=== PATIENT | female | born 1945 | race Caucasian/White ===

== ENCOUNTER 2017-05-27 22:18 | Emergency (ER) | payer OTHER, MEDICAID ==
[2017-05-27] MEDS ORDERED: NS 1,000 ML IV ONE (22:26)
--- NOTE | 2017-05-27 22:29 | CPEKG ---
Heart Rate: 77 RR Interval: 779 P-R Interval: 136 QRSD Interval: 80 QT Interval: 356 QTC Interval: 403 P [place]: 41 QRS [place]: 11 T Wave [place]: 88 EKG Severity - ABNORMAL ECG - EKG Impression: SINUS RHYTHM EKG Impression: NONSPECIFIC T ABNORMALITIES, ANT-LAT LEADS Electronically Signed By: Soraida Romero 28-May-2017 05:15:04
--- NOTE | 2017-05-27 22:34 | EDPHY ---
H & P Stated Complaint: abdominal pain Time Seen by Provider: 05/27/17 22:20 HPI/ROS: HPI The patient presents brought in by ambulance for abdominal pain which began about 2 hr prior to arrival. This started as chest pain supposedly, however the patient denies this, and then traveled to her left lower quadrant and groin. She suffers from chronic pain which she mostly experiences on the right side of her body, however this pain appears to be more left-sided. It has been constant for the last 2 hr. She says she has been fearful of eating anything because she feels this would provoke the pain. She denies any falls, rashes, difficulty urinating or constipation. He has not had a fever. She has not had pain like this before. REVIEW OF SYSTEMS Constitutional: No fever, no chills. Eyes: No discharge. ENT: No sore throat. Cardiovascular: No chest pain, no palpitations. Respiratory: No cough, no shortness of breath. Gastrointestinal: Positive for left lower quadrant abdominal pain Genitourinary: No hematuria. Musculoskeletal: No back pain. Skin: No rashes. Neurological: No headache. PMHx: History of CVA with hemiplegia and dysphagia, chronic pain syndrome, major depressive disorder Soc Hx: Lives at [facility]; [place] patient PHYSICAL General Appearance: Alert, no distress Eyes: Pupils equal and round no pallor or injection ENT, Mouth: Mucous membranes moist Respiratory: There are no retractions, lungs are clear to auscultation Cardiovascular: Regular rate and rhythm Gastrointestinal: Midline surgical abdominal scar, Abdomen is soft and tender bilateral lower quadrants, no masses, bowel sounds normal : There is no inguinal lymphadenopathy, there is no rash present externally Neurological: A&O, moves all extremities Skin: Warm and dry, no rashes Musculoskeletal: Neck is supple non tender Extremities: symmetrical, full range of motion Psychiatric: Patient is oriented , there is no agitation Source: Patient, EMS Exam Limitations: Physical impairment Constitutional: Initial Vital Signs Temperature (C) 36.4 C 05/27/17 22:29 Heart Rate 88 05/27/17 22:29 Respiratory Rate 16 05/27/17 22:29 Blood Pressure 159/92 H 05/27/17 22:29 O2 Sat (%) 97 05/27/17 22:29 O2 Delivery Mode Room Air Allergies/Adverse Reactions: Penicillins Allergy (Verified 05/27/17 22:38) Home Medications: Medication Instructions Recorded Aspirin 05/27/17 Atorvastatin Calcium 05/27/17 Carvedilol 05/27/17 Cymbalta 05/27/17 Fosamax 35 MG 05/27/17 Lisinopril 05/27/17 Melatonin 05/27/17 [place] 5/325 (*) 05/27/17 Senna 05/27/17 Tegretol 05/27/17 Tylenol 325mg (*) 05/27/17 Medical Decision Making - Diagnostics EKG Interpretation: EKG: Complete interpretation has been separately recorded in the [facility] archive. Summary impression: Normal sinus rhythm the biphasic T-waves in V2, no old for comparison Imaging Results: Imaging Impressions Chest X-Ray 05/27/17 22:26 Impression: 1. No acute pulmonary disease. 2. Old right rib fractures. 3. No pneumothorax. Abdomen CT 05/27/17 22:47 Impression: 1. Severe constipation with a large amount of stool throughout the entire colon. 2. No evidence of diverticulitis, colitis or bowel obstruction. 3. Old L1, L2 and L5 compression fractures with retropulsion at L1 and L2 resulting in at least moderate central canal stenosis as described above. Findings and recommendations discussed with Emergency Department physician, Soraida Romero MD at 23:30 hour, 05/27/2017. Final report concurs with initial preliminary interpretation. Imaging: Discussed imaging studies w/ call center receptionist Radiologist, I viewed and interpreted images myself Differential Diagnosis: This is a 72-year-old female who is brought in by ambulance from [facility], past medical history includes CVA, chronic pain syndrome, major depressive disorder who presents with lower abdominal pain for the last 2 hr, not improved with pain medication that she received at the snf. On exam, she is generally well-appearing, she does have tenderness in her lower quadrants. She is no masses felt. Differential diagnosis includes appendicitis, diverticulitis, ovarian cyst or torsion, urinary tract infection. 10:35 p.m.- I met the paramedics at the bedside to obtain their report. I have ordered IV fluids and pain medication for her. 11:45 p.m.- Labs have been reviewed and are unremarkable. CT scan demonstrates constipation with no other acute findings. We have offered the patient an enema , however she refuses. She does agree to magnesium citrate. She could try the enema when she returns to her snf. We will discharge her back there. - Data Points Laboratory Results: Laboratory Results 05/27/17 22:10 05/27/17 22:10 05/27/17 05/27/17 05/27/17 23:35 22:10 22:10 WBC 6.42 10^3/uL 10^3/uL (3.80-9.50) RBC 4.20 10^6/uL 10^6/uL (4.18-5.33) Hgb 13.1 g/dL g/dL (12.6-16.3) Hct 39.2 % % (38.0-47.0) MCV 93.3 fL fL (81.5-99.8) MCH 31.2 pg pg (27.9-34.1) MCHC 33.4 g/dL g/dL (32.4-36.7) RDW 13.3 % % (11.5-15.2) Plt Count 268 10^3/uL 10^3/uL (150-400) MPV 9.5 fL fL (8.7-11.7) Neut % (Auto) 80.5 % H % (39.3-74.2) Lymph % (Auto) 14.5 % L % (15.0-45.0) [place] % (Auto) 4.0 % L % (4.5-13.0) Eos % (Auto) 0.2 % L % (0.6-7.6) Baso % (Auto) 0.2 % L % (0.3-1.7) Nucleat RBC Rel Count 0.0 % % (0.0-0.2) Absolute Neuts (auto) 5.17 10^3/uL 10^3/uL (1.70-6.50) Absolute Lymphs (auto) 0.93 10^3/uL L 10^3/uL (1.00-3.00) Absolute Monos (auto) 0.26 10^3/uL L 10^3/uL (0.30-0.80) Absolute Eos (auto) 0.01 10^3/uL L 10^3/uL (0.03-0.40) Absolute Basos (auto) 0.01 10^3/uL L 10^3/uL (0.02-0.10) Absolute Nucleated RBC 0.00 10^3/uL 10^3/uL (0-0.01) Immature Gran % 0.6 % % (0.0-1.1) Immature Gran # 0.04 10^3/uL 10^3/uL (0.00-0.10) Sodium 138 mEq/L mEq/L (135-145) Potassium 4.1 mEq/L mEq/L (3.5-5.2) Chloride 102 mEq/L mEq/L (97-110) Carbon Dioxide 28 mEq/l mEq/l (22-31) Anion Gap 8 mEq/L mEq/L (8-16) BUN 32 mg/dL H mg/dL (7-23) Creatinine 0.8 mg/dL mg/dL (0.6-1.0) Estimated GFR > 60 Glucose 104 mg/dL H mg/dL (70-100) Calcium 8.7 mg/dL mg/dL (8.5-10.4) Total Bilirubin 0.4 mg/dL mg/dL (0.1-1.4) Conjugated Bilirubin 0.4 mg/dL mg/dL (0.0-0.5) Unconjugated Bilirubin 0.0 mg/dL mg/dL (0.0-1.1) AST 20 IU/L IU/L (14-46) ALT 24 IU/L IU/L (9-52) Alkaline Phosphatase 80 IU/L IU/L (38-126) Troponin I < 0.012 ng/mL ng/mL (0.000-0.034) Total Protein 6.2 g/dL L g/dL (6.3-8.2) Albumin 3.6 g/dL g/dL (3.5-5.0) Lipase 111 IU/L IU/L (23-300) Urine Color YELLOW Urine Appearance CLEAR Urine pH 5.0 (5.0-7.5) Ur Specific [place] > 1.035 H (1.002-1.030) Urine Protein NEGATIVE (NEGATIVE) Urine Ketones NEGATIVE (NEGATIVE) Urine Blood NEGATIVE (NEGATIVE) Urine Nitrate NEGATIVE (NEGATIVE) Urine Bilirubin NEGATIVE (NEGATIVE) Urine Urobilinogen 2.0 EU H EU (0.2-1.0) Ur Leukocyte Esterase NEGATIVE (NEGATIVE) Urine Glucose NEGATIVE (NEGATIVE) Medications Given: Discontinued Medications Fentanyl (Sublimaze) 50 mcg IVP EDNOW ONE Stop: 05/27/17 22:48 Last Admin: 05/27/17 23:35 Dose: 50 mcg Sodium Chloride (Ns) 1,000 mls @ 0 mls/hr IV EDNOW ONE; Wide Open PRN Reason: Protocol Stop: 05/27/17 22:27 Last Admin: 05/27/17 22:55 Dose: 1,000 mls Magnesium Citrate (Magnesium Citrate) 300 ml PO ONCE ONE Stop: 05/27/17 23:47 Last Admin: 05/27/17 23:54 Dose: 300 ml Departure - Departure Disposition: Home, Routine, Self-Care Clinical Impression: Lower abdominal pain, History of CVA (cerebrovascular accident) Constipation Qualifiers: Constipation type: unspecified constipation type Qualified Code(s): K59.00 - Constipation, unspecified Condition: Good Instructions: Constipation (ED) Additional Instructions: Your x-ray today shows that you have severe constipation. I recommend you drink plenty of fluids including prune juice. You can take MiraLax 17 g once a day until the constipation improves. You should try to avoid opiate pain medications as this may be contributing to your constipation. Referrals: [facility] ,. [Edm Groups for Call Sched] - As per Instructions
[2017-05-27 22:35] LABS: PLATELET COUNT 268 10^3/uL (150-400)
[2017-05-27 22:38] VITALS: TEMP 97.5
[2017-05-27] MEDS ORDERED: fentaNYL 100 MCG/2 ML INJ IVP ONE (22:47)
[2017-05-27] MEDS ORDERED: IOPAMIDOL (ISOVUE-300) 100 ML BTL ONE (22:52)
[2017-05-27] MEDS ORDERED: MAGNESIUM CITRATE 300 ML BOTTLE PO ONE (23:46)
[2017-05-28 00:30] VITALS: BP 153/90; PULSE 78; RESP 18; O2SAT 95
== END 2017-05-28 00:30 | disposition home or self-care (01) ==
LOC: EDUNIT#
DX: K59.00 Constipation, unspecified (principal); E86.9 Volume depletion, unspecified; Z79.82 Long term (current) use of aspirin; Z86.73 Personal history of transient ischemic attack (TIA), and cerebral infarction without residual deficits
CPT/HCPCS: 71045; 74177; 93005; 96361; 96374; 99285; J3010; Q9967

== ENCOUNTER 2017-06-04 15:30 | Observation (INO) | payer OTHER, MEDICAID ==
--- NOTE | 2017-06-04 15:32 | EDPHY ---
HPI/HX/ROS/PE/MDM Narrative: CHIEF COMPLAINT: Confusion, difficulty speaking HISTORY OF PRESENT ILLNESS: The patient is a 72 y/o female with a history of a stroke, cardiac stent, and chronic right-sided pain arriving via EMS as a stroke alert, after she became confused and had difficulty talking. At 15:00, 30 minutes ago, she went down to the nurses station for right-sided pain. The nurse noticed that the patient was more confused than normal and she had difficulty talking. When EMS arrived, she was too confused to follow commands. Her BGL was 133. She is currently complaining of right-sided pain. No left-sided pain, but there is a tingling sensation. Takes Aspirin daily. States she takes her pain medications as prescribed. Per her sister, the patient normally has difficulty talking. She normally knows what she wants to say, but is unable to say it. Her sister believes that the patient is at her baseline. No fever, chills, chest pain, shortness of breath, palpitations, vomiting, diarrhea, urinary complaints, headache, lightheadedness. Prior medical records reviewed including ED visit on 05/27/[address] Romero. REVIEW OF SYSTEMS: Aside from elements discussed in the HPI, a comprehensive 10-point review of systems was reviewed and is negative. PAST MEDICAL HISTORY: CVA with hemilegia and dysphagia, cardiac stent (5 years ago), chronic pain syndrome, major depressive disorder SOCIAL HISTORY: Sister at bedside, lives at [facility] patient VITAL SIGNS: Reviewed by me GENERAL: Can tell me her name, but her speech seems off. Well-developed, well- nourished, resting comfortably in no respiratory distress. HEENT: Atraumatic. Eyes: No icterus, no injection. Mouth: moist mucous membranes. No erythema or lesions. Neck: supple with no adenopathy. LUNGS: Clear to auscultation bilaterally, no wheezes, rhonchi or rales. CARDIAC: Regular rate and rhythm, no rubs, murmurs or gallops. ABDOMEN: Soft, nontender, nondistended, bowel sounds normal. BACK: No CVA tenderness. EXTREMITIES: No trauma. No edema. Range of motion is normal throughout. NEURO: Alert and oriented, unable to name objects, expressive aphasia, some difficulty following commands. Normal [id number]. Motor strength 5 over 5 in all major muscle groups. Sensation intact to light touch. SKIN: Warm and dry, no rash. PSYCHIATRIC: Normal mentation, no agitation. Portions of this note were transcribed by a medical laboratory specialist. I personally performed a history, physical exam, medical decision making, and confirmed accuracy of information the transcribed note. ED Course: The patient is a 72 y/o female with a history of a CVA and chronic right-sided pain arriving via EMS as a stroke alert. She became confused and had difficulty talking at 15:00, 30 minutes ago. However, her last known normal mentation is unknown. She can tell me her name but is unable to name objects, has expressive aphasia, and is only able to follow some commands. EKG, chest x-ray, and head CT ordered. 1530: I met EMS upon arrival. 1544: Consulted with neurologist from [facility], regarding this patient. 1545: Spoke with Dr. Parikh, radiologist, there is a large left MCA stroke from prior stroke. No signs of acute stroke on right. 1552: 12-LEAD EKG: Please see the full report in [facility]. My interpretation: Normal sinus rhythm with a rate of 68, significant T-wave inversions V1-3. Similar to prior EKG's. 1605: Patient's sister is at bedside. She states that her sister seems to be at her baseline for speech and pain. 1645: Angio head and neck CT ordered 1728: Spoke with radiologist, he reports that the patient's CTA's are normal. 1740: Consulted with Dr. Chung from [place], patient will be admitted to this hospital for observation. 1807: Consulted with Dr. Guillaume, hospitalist; he agrees to admit this patient for a possible TIA and confusion. - Data Points Imaging Results: Imaging Impressions Head CT 06/04/17 15:35 Impression: 1. Encephalomalacia related to large infarct previously involving left MCA distribution. 2. No hemorrhage, mass effect, or definite acute peripheral infarct. If symptoms worsen, additional imaging may be necessary. Findings discussed with Iesha Bautista MD at 1550 hour, 06/04/2017. Chest X-Ray 06/04/17 15:36 Impression: Nothing new. Head CTA 06/04/17 16:41 Impression: 1. Mild atherosclerotic change in both carotid bulbs with no flow significant stenosis. 2. Mild tortuosity of the left vertebral artery narrowing the neural foramina at C2-C3. 3. Other chronic findings as above. Measurement of carotid stenosis is based on the residual internal carotid diameter with [place] Symptomatic Carotid Endarterectomy Trial (NASCET) based stenosis levels. CT Angiography of the Brain Clinical Indications: Possible stroke? Left weakness, confusion. Technique: CT angiogram of the brain was performed with the uneventful intravenous administration of 90 mL Isovue-370 contrast. Multiplanar reconstructions including 3D reconstructions performed and evaluated on [employer] workstation in order to better evaluate the [place] vessels. Images were manipulated by the radiologist at the computer workstation. Dose reduction techniques were utilized. Findings: Major vessels of the [place] are adequately displayed, demonstrating no evidence of aneurysm, vascular malformation, flow-limiting stenosis, or occlusion. Bilateral cavernous internal carotid arteries and vertebrobasilar system demonstrates no evidence of flow-limiting stenosis, aneurysm, occlusion or dissection. Superior sagittal sinus, transverse sinuses, and major veins demonstrate no evidence of intraluminal thrombi. Encephalomalacia from an old chronic infarct on the left as seen on the CT head performed earlier today. Impression: Negative CT angiogram of the brain. Results called and discussed with Iesha Bautista MD, on 06/04/2017, 17:31. Neck CTA 06/04/17 16:41 Impression: 1. Mild atherosclerotic change in both carotid bulbs with no flow significant stenosis. 2. Mild tortuosity of the left vertebral artery narrowing the neural foramina at C2-C3. 3. Other chronic findings as above. Measurement of carotid stenosis is based on the residual internal carotid diameter with [place] Symptomatic Carotid Endarterectomy Trial (NASCET) based stenosis levels. CT Angiography of the Brain Clinical Indications: Possible stroke? Left weakness, confusion. Technique: CT angiogram of the brain was performed with the uneventful intravenous administration of 90 mL Isovue-370 contrast. Multiplanar reconstructions including 3D reconstructions performed and evaluated on Vitrea workstation in order to better evaluate the [place] vessels. Images were manipulated by the radiologist at the computer workstation. Dose reduction techniques were utilized. Findings: Major vessels of the [place] are adequately displayed, demonstrating no evidence of aneurysm, vascular malformation, flow-limiting stenosis, or occlusion. Bilateral cavernous internal carotid arteries and vertebrobasilar system demonstrates no evidence of flow-limiting stenosis, aneurysm, occlusion or dissection. Superior sagittal sinus, transverse sinuses, and major veins demonstrate no evidence of intraluminal thrombi. Encephalomalacia from an old chronic infarct on the left as seen on the CT head performed earlier today. Impression: Negative CT angiogram of the brain. Results called and discussed with Iesha Bautista MD, on 06/04/2017, 17:31. Imaging: Discussed imaging studies w/ parachute supervisor Radiologist, I viewed and interpreted images myself Laboratory Results: Laboratory Results 06/04/17 15:45 06/04/17 15:45 06/04/17 06/04/17 06/04/17 16:41 15:52 15:45 WBC RBC Hgb POC Hgb 12.9 gm/dL gm/dL (12.6-16.3) Hct POC Hct 38 % % (38-47) MCV MCH MCHC RDW Plt Count MPV Neut % (Auto) Lymph % (Auto) [place] % (Auto) Eos % (Auto) Baso % (Auto) Nucleat RBC Rel Count Absolute Neuts (auto) Absolute Lymphs (auto) Absolute Monos (auto) Absolute Eos (auto) Absolute Basos (auto) Absolute Nucleated RBC Immature Gran % Immature Gran # PT INR POC Sodium 142 mEq/L mEq/L (135-145) Sodium POC Potassium 4.0 mEq/L mEq/L (3.3-5.0) Potassium POC Chloride 101 mEq/L mEq/L (97-110) Chloride Carbon Dioxide Anion Gap POC BUN 15 mg/dL mg/dL (7-23) BUN Creatinine POC Creatinine 0.7 mg/dL mg/dL (0.6-1.0) Estimated GFR Glucose POC Glucose 130 mg/dL H mg/dL (70-100) Calcium Troponin I < 0.012 ng/mL ng/mL (0.000-0.034) TSH 0.885 uIU/mL uIU/mL (0.465-4.680) 06/04/17 06/04/17 06/04/17 15:45 15:45 15:45 WBC 6.90 10^3/uL 10^3/uL (3.80-9.50) RBC 4.12 10^6/uL L 10^6/uL (4.18-5.33) Hgb 12.8 g/dL g/dL (12.6-16.3) POC Hgb Hct 39.1 % % (38.0-47.0) POC Hct MCV 94.9 fL fL (81.5-99.8) MCH 31.1 pg pg (27.9-34.1) MCHC 32.7 g/dL g/dL (32.4-36.7) RDW 13.5 % % (11.5-15.2) Plt Count 298 10^3/uL 10^3/uL (150-400) MPV 9.1 fL fL (8.7-11.7) Neut % (Auto) 83.3 % H % (39.3-74.2) Lymph % (Auto) 11.7 % L % (15.0-45.0) [place] % (Auto) 4.2 % L % (4.5-13.0) Eos % (Auto) 0.0 % L % (0.6-7.6) Baso % (Auto) 0.1 % L % (0.3-1.7) Nucleat RBC Rel Count 0.0 % % (0.0-0.2) Absolute Neuts (auto) 5.74 10^3/uL 10^3/uL (1.70-6.50) Absolute Lymphs (auto) 0.81 10^3/uL L 10^3/uL (1.00-3.00) Absolute Monos (auto) 0.29 10^3/uL L 10^3/uL (0.30-0.80) Absolute Eos (auto) 0.00 10^3/uL L 10^3/uL (0.03-0.40) Absolute Basos (auto) 0.01 10^3/uL L 10^3/uL (0.02-0.10) Absolute Nucleated RBC 0.00 10^3/uL 10^3/uL (0-0.01) Immature Gran % 0.7 % % (0.0-1.1) Immature Gran # 0.05 10^3/uL 10^3/uL (0.00-0.10) PT 12.8 SEC SEC (12.0-15.0) INR 0.94 (0.83-1.16) POC Sodium Sodium 142 mEq/L mEq/L (135-145) POC Potassium Potassium 4.4 mEq/L mEq/L (3.5-5.2) POC Chloride Chloride 101 mEq/L mEq/L (97-110) Carbon Dioxide 30 mEq/l mEq/l (22-31) Anion Gap 11 mEq/L mEq/L (8-16) POC BUN BUN 16 mg/dL mg/dL (7-23) Creatinine 0.6 mg/dL mg/dL (0.6-1.0) POC Creatinine Estimated GFR > 60 Glucose 116 mg/dL H mg/dL (70-100) POC Glucose Calcium 8.5 mg/dL mg/dL (8.5-10.4) Troponin I TSH Medications Given: Oxycodone HCl (Oxycodone Ir) 5 - 10 mg PO Q3HRS PRN PRN Reason: Pain, Severe Able to Take PO Stop: 06/14/17 18:33 Last Admin: 06/04/17 20:20 Dose: 10 mg Point of Care Test Results: 06/04/17 15:52 POC Sodium 142 POC Potassium 4.0 POC Chloride 101 POC BUN 15 POC Creatinine 0.7 POC Glucose 130 H General Initial Vital Signs: Initial Vital Signs Temperature (C) 36.7 C 06/04/17 15:51 Heart Rate 79 06/04/17 15:51 Respiratory Rate 19 06/04/17 15:51 Blood Pressure 120/77 06/04/17 15:51 O2 Sat (%) 98 06/04/17 15:51 O2 Delivery Mode Room Air Allergies/Adverse Reactions: Penicillins Allergy (Verified 05/27/17 22:38) Home Medications: Medication Instructions Recorded Aspirin EC [Aspirin EC 81 mg (*)] 81 mg PO DAILY 05/27/17 Atorvastatin Calcium 80 mg PO DAILY 05/27/17 Carvedilol [Coreg (*)] 6.25 mg PO BIDMEAL 05/27/17 Duloxetine HCl [Cymbalta] 90 mg PO DAILY 05/27/17 Acetaminophen [Tylenol 325mg (*)] 650 mg PO BID PRN 06/04/17 Alendronate Sodium [Fosamax 70 MG 70 mg PO TU@0700 06/04/17 (*)] Cholecalciferol Vit D3 [Vitamin D3 1,000 units PO DAILY 06/04/17 (*)] Cyanocobalamin [Vitamin B12 (*)] 1,000 mcg PO DAILY 06/04/17 Estradiol [Estrace Vaginal (*)] 1 gm VG MOTH 06/04/17 HYDROcodone/APAP 10325 [[place] 1 tab PO Q4 06/04/17 10325 (*)] Lisinopril/Hctz 20/12.5MG 2 ea PO DAILY 06/04/17 [Zestoretic/Prinzide 20/12.5MG (*)] Melatonin [Melatonin 3 MG (*)] 3 mg PO HS PRN 06/04/17 Multivitamins [Multivitamin (*)] 1 tab PO DAILY 06/04/17 Polyethylene Glycol 3350 [Miralax 17 gm PO DAILY 06/04/17 17 gm (*)] Polyethylene Glycol 3350 [Miralax 17 gm PO DAILY PRN 06/04/17 17 gm (*)] Rabeprazole Sodium [Aciphex] 20 mg PO DAILY 06/04/17 Sennosides/Docusate Sodium 1 tab PO BID PRN 06/04/17 [SENEXON-S TABLET] Triamcinolone 0.1% [Triamcinolone 1 brett TP BID PRN 06/04/17 0.1% Cream (*)] predniSONE [Prednisone] 10 mg PO DAILY 06/04/17 Departure - Departure Disposition: [facility] Inpatient Acute Clinical Impression: Confusion TIA (transient ischemic attack) Qualifiers: Transient cerebral ischemia type: other Qualified Code(s): G45.8 - Other transient cerebral ischemic attacks and related syndromes Condition: Fair Report Scribed for: Iesha Bautista Report Scribed by: Rebecca Gilliam Date of Report: 06/04/17 Time of Report: 15:35
--- NOTE | 2017-06-04 15:54 | CPEKG ---
Heart Rate: 68 RR Interval: 882 P-R Interval: 136 QRSD Interval: 76 QT Interval: 388 QTC Interval: 413 P [place]: 0 QRS [place]: 22 T Wave [place]: 82 EKG Severity - ABNORMAL ECG - EKG Impression: SINUS RHYTHM EKG Impression: PROBABLE LEFT ATRIAL ABNORMALITY EKG Impression: PROBABLE ANTEROSEPTAL INFARCT, AGE INDETERM Electronically Signed By: Iesha Bautista 05-Jun-2017 00:46:29
[2017-06-04 16:11] LABS: PLATELET COUNT 298 10^3/uL (150-400)
[2017-06-04 16:21] LABS: INR 0.94 (0.83-1.16); PROTIME(PATIENT) 12.8 SEC (12.0-15.0)
[2017-06-04] MEDS ORDERED: IOPAMIDOL (ISOVUE 370) 100 ML BTL IV ONE (16:46)
[2017-06-04] MEDS ORDERED: ONDANSETRON DISINTEGRATING 4 MG TAB PO PRN (18:34)
[2017-06-04] MEDS ORDERED: ONDANSETRON 4 MG/2 ML VIAL IVP PRN (18:34)
--- NOTE | 2017-06-04 19:20 | GHP ---
[f rep st] HISTORY AND PHYSICAL DATE OF ADMISSION: 06/04/2017 CHIEF COMPLAINT: Worsening pain. HISTORY OF PRESENT ILLNESS: This is 72-year-old female with a history of a CVA with significant defi cits who is brought in by paramedics as a stroke alert for questionable worsening left-sided weakness . She has a history of a large left-sided MCA distribution stroke with expressive aphasia as well as right-sided weakness. She lives at [facility]. She went to the motel front desk attendant today complaining of wo rsening pain. She is telling me she was complaining of pain on her right side of her body, however, the initial report was pain on the left side of her body. She has chronic right-sided pain since her stroke. When paramedics evaluated her they thought that she had some left-sided weakness. Thus, roscoe ndiaye was brought in as a stroke alert. I am seeing her with her sister, niece, and grandniece. They al l confirm to me that neurologically she is unchanged from her baseline. To me she continues to compl ain of worse right-sided burning pain, mostly centered in her right thigh. She had been started on p rednisone at [facility] I believe for this chronic pain. PAST MEDICAL/SURGICAL HISTORY: 1. History of a CVA 20 years ago, left MCA distribution stroke. Currently on Lipitor and aspirin. 2. Chronic pain on the right side of her body subsequent to this stroke. 3. Depression. 4. Hypertension. 5. Coronary artery disease, status post stent 4 years ago. 6. GERD. 7. Bowel obstruction, status post surgical intervention. MEDICATIONS: Please see medication reconciliation. ALLERGIES: Penicillin. FAMILY HISTORY: She has heart disease, but no strokes in her family. SOCIAL HISTORY: She lives at [facility]. She is accompanied by multiple family members. REVIEW OF SYSTEMS: A 10-point review of systems is conducted, and is negative except per HPI. PHYSICAL EXAM: VITAL SIGNS: Blood pressure 145/72, heart rate 70, respiration rate 20, satting at 9 4% on room air. Temperature is 36.7. GENERAL: The patient is a very pleasant female who is resting comfortably, no acute distress. HEENT: Shows her to be normocephalic, atraumatic. CARDIOVASCULAR: Regular rate and rhythm. No murmurs, no murmurs rubs, or gallops. PULMONARY: Lungs clear to ausc ultation bilaterally. ABDOMEN: Soft, nontender, nondistended. SKIN: Shows no rash. : No Marcano . NEUROLOGIC: Shows her to have significant expressive aphasia. I believe that she is alert and or iented x3. Cranial nerves 2-12 are intact. She has marked right-sided weakness with a right arm con tracture. It is difficult to ascertain, but I believe that sensation to light touch is intact in the right side. On the left side, her triceps is mildly weak. However, the majority of her left-sided motor exam seems normal. Sensation is intact to light touch. PSYCHIATRIC: Normal mood and affect. LABS: Basic metabolic panel is normal. Troponin is negative. INR 0.94. CBC is normal. DATA: 1. CT angio of the head and neck shows no flow-limiting stenosis. Negative CT angio of the brain. 2. Electrocardiogram shows deep T-wave inversions in V2 through V4 which have been present previousl y. 3. Head CT shows a large area of left-sided encephalomalacia related to her old stroke. 4. Chest x-ray, which I personally viewed and interpreted shows normal-sized heart. No acute infilt rates. IMPRESSION/PLAN: 1. Questionable new neurologic changes in patient with significant deficits from an old cerebrovascu lar accident: I believe she is at her baseline. She is not a tPA candidate as there was no time of onset, unclear neurologic symptoms, and she is currently at her baseline. She did come in as a strok e alert. For now, we will continue her previous medications, including aspirin, statin. I have orde red an MRI just to help further evaluate, as may change her antiplatelet medications. We will monito r on telemetry as well. Neurology consult will be obtained tomorrow. If workup is negative, she can likely be discharged tomorrow. 2. Coronary artery disease, status post stent: She is on aspirin, statin, beta helena. We will co ntinue these. 3. Chronic pain, on continuous narcotics: This is from her stroke. She has received a prednisone b urst which does not seem to have helped her pain much. I note that she is on Cymbalta. Would also c onsider adding something like gabapentin if that has not been tried before. 4. Hypertension: Lisinopril/hydrochlorothiazide. 5. Code status: She would like to be full code, full tube. Her sister is her MD GUERRA. We will cont inue to discuss her Advanced Directives. 6. Venous thromboembolism risk is high. I will give her low-dose Lovenox. /[id number]/MODL
[2017-06-04] MEDS ORDERED: POLYETHYLENE GLYCOL 3350 17 GM PKT PO PRN (19:26)
[2017-06-04] MEDS ORDERED: MELATONIN 3 MG TAB PO PRN (19:26)
[2017-06-04] MEDS ORDERED: TRIAMCINOLONE 0.1% 15 GM CRTUBE TP PRN (19:26)
[2017-06-04] MEDS ORDERED: SENNOSIDES/DOCUSATE SODIUM TAB PO PRN (19:26)
[2017-06-04] MEDS: oxyCODONE IR 5 MG TAB PO PRN ×2 (20:18→20:20)
[2017-06-05] MEDS: oxyCODONE IR 5 MG TAB PO PRN ×5 (01:09→15:14)
[2017-06-05 07:57] VITALS: PULSE 69; RESP 16; O2SAT 93
[2017-06-05] MEDS ORDERED: CARVEDILOL 6.25 MG TAB PO SCH (08:00)
[2017-06-05] MEDS ORDERED: POLYETHYLENE GLYCOL 3350 17 GM PKT PO SCH (09:00)
[2017-06-05] MEDS ORDERED: PANTOPRAZOLE SODIUM 40 MG TAB PO SCH (09:00)
[2017-06-05] MEDS ORDERED: ASPIRIN EC 81 MG TAB PO SCH (09:00)
[2017-06-05] MEDS ORDERED: ATORVASTATIN CALCIUM 40 MG TAB PO SCH (09:00)
[2017-06-05] MEDS ORDERED: DULoxetine 30 MG CAP PO SCH (09:00)
[2017-06-05] MEDS ORDERED: LISINOPRIL/HCTZ 20/12.5MG 1 EA TAB PO SCH (09:00)
[2017-06-05] MEDS ORDERED: ENOXAPARIN 40 MG/0.4 ML SYR SC SCH (09:00)
[2017-06-05] MEDS ORDERED: predniSONE 10 MG TAB PO SCH (09:00)
[2017-06-05] MEDS: ACETAMINOPHEN 325 MG TAB PO PRN ×2 (09:42→14:51)
[2017-06-05 11:22] VITALS: BP 127/66; TEMP 97.4
--- NOTE | 2017-06-05 11:47 | GCON ---
[f rep st] CONSULTATION NEUROLOGY CONSULTATION REFERRING PHYSICIAN: Shantanu Guillaume MD HISTORY: The patient is a 72-year-old woman who I am asked to see in neurologic consultation regardi ng neurologic changes, perhaps yesterday in which there was a question of stroke. She had a stroke a bout 20 years ago with severe left middle cerebral artery territory infarct causing severe expressive aphasia problems and a right-sided weakness. She lives at [facility]. According to the history, s he had gone to the front tender and was apparently complaining of some pain on the right side of her yasmine dy. There has been some chronic issues with this since the stroke. She was noted to have perhaps mo re weakness by paramedics and she came in under a stroke alert. Dr. Guillaume saw the patient with the sister, niece and grandniece. They did not think she was different from her baseline. She was focu sed mainly on pain around the right thigh. Currently, the patient is not expressing pain to me. How ever, her language is impaired enough that she can't really tell me much other than yes' and no's and can't speak a few words, but I will detail that exam in a moment. She was not thought to be a candidate for tPA because of really a lack of clear onset and she did not have any large vessel occlusions on the CT angiogram. She was continued on aspirin and her statin t herapy, and has been on the floor overnight with no evidence of new problems. PAST MEDICAL HISTORY: As outlined above. Chronic pain on the right side, depression, hypertension, coronary disease, reflux, and prior bowel obstruction with surgical intervention. ALLERGIES: To penicillin. FAMILY HISTORY: Of heart disease. SOCIAL HISTORY: She lives at [facility]. No smoking or alcohol. REVIEW OF SYSTEMS: A 10-point review of systems completed, unremarkable except for that noted above. PHYSICAL EXAMINATION: VITAL SIGNS: Her blood pressure is 132/66, pulse of 69, respirations 16, temp erature 36.4. GENERAL: She is well developed, lying in the bed in no acute distress. NECK: Supple with no bruits or masses. CARDIAC: Regular rate and rhythm with no murmur. NEUROLOGIC: She is aw nenita and alert with prominent expressive aphasia with fragmentary speech, but she could name some obje cts. She could count to 5. She could count my fingers. Her ability to express what is happening is profoundly impaired because of the language problems. Sometimes she will make mistakes with yes and no responses but can correct them. The speech is mildly dysarthric. Pupils 3 mm and reactive. No obvious visual field loss. Extraocul ar movements are intact. There is a mild right lower facial droop. Palate elevates symmetrically. Tongue protrudes midline. Motor exam reveals spastic right hemiplegia with partial antigravity stren gth in the right lower extremity and minimal in the right upper extremity. Sensation seems to be int act, although detail is hard to say for sure. She is not ataxic. Reflexes are brisk on the right. IMAGING: I reviewed the head CT. CT angiogram of the brain MRI. I do not see any evidence of acute stroke on the MRI diffusion-weighted imaging. No hemorrhage. There is a very large area of encepha lomalacia in most of the entire territory of the left middle cerebral artery. IMPRESSION: Total unit time of 70 minutes. The patient probably did not have a transient ischemic a ttack and definitely does not have evidence of a new stroke. Perhaps some fluctuation in prior defic its could be present. Apparently, pain is not a new issue. I do not see any indication for changing our secondary stroke prophylaxis strategies. I believe she can safely be discharged back to [facility] on her aspirin and statin therapy. Her current NIH Stroke Scale is 12. /[id number]/MODL
[2017-06-05] MEDS ORDERED: oxyCODONE IR 5 MG TAB PO ONE ×2 (12:01→16:00)
--- NOTE | 2017-06-05 12:11 | PDIAF ---
- Diagnosis Diagnosis: h/o stroke Code Status: Full Code - Medication Management Discharge Medications: Medications to Continue on Transfer Aspirin EC [Aspirin EC 81 mg (*)] 81 mg PO DAILY 05/27/17 [Last Taken 06/04/17 08:00] Atorvastatin Calcium 80 mg PO DAILY 05/27/17 [Last Taken 06/03/17] Carvedilol [Coreg (*)] 6.25 mg PO BIDMEAL 05/27/17 [Last Taken 06/04/17 08:00] Duloxetine HCl [Cymbalta] 90 mg PO DAILY 05/27/17 [Last Taken 06/04/17 08:00] Acetaminophen [Tylenol 325mg (*)] 650 mg PO BID PRN 06/04/17 [Last Taken 08:00] Alendronate Sodium [Fosamax 70 MG (*)] 70 mg PO TU@0700 06/04/17 [Last Taken ] Cholecalciferol Vit D3 [Vitamin D3 (*)] 1,000 units PO DAILY 06/04/17 [Last Taken 06/04/17 08:00] Cyanocobalamin [Vitamin B12 (*)] 1,000 mcg PO DAILY 06/04/17 [Last Taken 08:00] Estradiol [Estrace Vaginal (*)] 1 gm VG MOTH 06/04/17 [Last Taken 06/02/17] HYDROcodone/APAP 10/325 [[place] 10/325 (*)] 1 tab PO Q4 06/04/17 [Last Taken 14:00] Lisinopril/Hctz 20/12.5MG [Zestoretic/Prinzide 20/12.5MG (*)] 2 ea PO DAILY [Last Taken 06/04/17 08:00] Melatonin [Melatonin 3 MG (*)] 3 mg PO HS PRN 06/04/17 [Last Taken Unknown] Multivitamins [Multivitamin (*)] 1 tab PO DAILY 06/04/17 [Last Taken 06/04/17 08 :00] Polyethylene Glycol 3350 [Miralax 17 gm (*)] 17 gm PO DAILY 06/04/17 [Last Taken 06/04/17 08:00] Polyethylene Glycol 3350 [Miralax 17 gm (*)] 17 gm PO DAILY PRN 06/04/17 [Last Taken Unknown] Rabeprazole Sodium [Aciphex] 20 mg PO DAILY 06/04/17 [Last Taken 06/03/17] Sennosides/Docusate Sodium [SENEXON-S TABLET] 1 tab PO BID PRN 06/04/17 [Last Taken Unknown] Triamcinolone 0.1% [Triamcinolone 0.1% Cream (*)] 1 brett TP BID PRN 06/04/17 [ Last Taken Unknown] predniSONE [Prednisone] 10 mg PO DAILY 06/04/17 [Last Taken 06/04/17 08:00] Discharge Medications: Refer to the Discharge Home Medication list for PRN reason. - Orders Services needed: Home Care, Physical Therapy, Occupational Therapy, Speech Language Pathologist Home Care Face to Face: I certify that this patient was under my care and that I had the required [id number] encounter meeting the encounter requirements on the discharge day. My findings support the fact that the patient is homebound as defined in Home Care Face to Face Continued: CMS Chapter 7 Medicare Benefits Manual 30.1.1 , The condition of the patient is such that there exists a normal inability to leave home and consequently, leaving home would require a considerable and taxing effort. - Follow Up Care Current Providers and Referrals: Patient,NotPresent [Unknown] - As per Instructions
--- NOTE | 2017-06-05 12:13 | HOSPPROG ---
Hospitalist Progress Note Assessment/Plan: 72 yo F w chronic R sided weakness admitted w same neg workup home see dc summary Subjective: case d/w dr delatorre Objective: Vital Signs Temp Pulse Resp BP Pulse Ox 36.3 C 69 16 127/66 H 93 06/05/17 11:20 06/05/17 11:20 06/05/17 11:20 06/05/17 11:20 06/05/17 11:20 06/04/17 06/05/17 06/06/17 05:59 05:59 05:59 Intake Total 250 Output Total 825 Balance -575 PT 12.8 SEC (12.0-15.0) 06/04/17 15:45 INR 0.94 (0.83-1.16) 06/04/17 15:45 - Physical Exam Constitutional: no apparent distress, appears nourished Eyes: PERRL, anicteric sclera Ears, Nose, Mouth, Throat: moist mucous membranes, hearing normal Cardiovascular: regular rate and rhythym, no murmur, rub, or gallop Respiratory: no respiratory distress, no rales or rhonchi Gastrointestinal: normoactive bowel sounds, soft, non-tender abdomen Genitourinary: no bladder fullness, No golden in urethra Skin: warm, normal color Musculoskeletal: full muscle strength Neurologic: AAOx3 ICD10 Worksheet Patient Problems: Problems Problem Status Onset Confusion Acute TIA (transient ischemic attack) Acute
--- NOTE | 2017-06-05 12:42 | GDS ---
[f rep st] DISCHARGE SUMMARY DISCHARGE DIAGNOSES: 1. Chronic right-sided weakness secondary to cerebrovascular accident with uncertain worsening. Thi s is felt not to be consistent with a transient ischemic attack probably. 2. Chronic pain on the right side of her body secondary to stroke. 3. Depression. 4. Hypertension. 5. Coronary artery disease status, post stent 4 years ago. 6. Gastroesophageal reflux disease. 7. History of bowel obstruction requiring surgical intervention. Please see admission history and physical by Dr. Shantanu Guillaume as well as a consult by Dr. Jeremías griffiths. The patient presented with worsening right-sided weakness as a stroke alert. Her family at the time of presentation, felt she was actually at her baseline. She had a CTA of her head showing no flow-limiting stenosis. She had CT angiography of brain ___ it was also normal. She had an MRI showing no new stroke. She had no events on telemetry. She is discharged home on unchanged medication regimen. /[id number]/MODL
[2017-06-06] MEDS ORDERED: ESTRADIOL 42.5 GM CRTUBE VG SCH (09:00)
[2017-06-08] MEDS ORDERED: predniSONE 5 MG TAB PO SCH (09:00)
== END 2017-06-05 16:28 | disposition home or self-care (01) ==
LOC: EDUNIT# → F3N 18:45
PROVIDERS: ADMIT Student in an Organized Health Care Education/Training Program; ATTEND Internal Medicine
DX: I69.351 Hemiplegia and hemiparesis following cerebral infarction affecting right dominant side (principal); I69.391 Dysphagia following cerebral infarction; Z95.5 Presence of coronary angioplasty implant and graft; F32.9 Major depressive disorder, single episode, unspecified; G89.4 Chronic pain syndrome; I10 Essential (primary) hypertension; K21.9 Gastro-esophageal reflux disease without esophagitis; I25.10 Atherosclerotic heart disease of native coronary artery without angina pectoris
CPT/HCPCS: 70450; 70496; 70498; 70551; 71045; 93005; G0378; J1650; J7512; Q9967; 82947-QW

== ENCOUNTER 2017-09-07 18:04 | Emergency (ER) | payer OTHER ==
[2017-09-07] MEDS ORDERED: NS 1,000 ML IV ONE (18:55)
[2017-09-07] MEDS ORDERED: ONDANSETRON 4 MG/2 ML VIAL IVP ONE (18:55)
--- NOTE | 2017-09-07 18:58 | EDPHY ---
H & P Stated Complaint: constipation - Personal History Current Tetanus Diphtheria and Acellular Pertussis (TDAP): Unsure - Medical/Surgical History Hx Asthma: No Hx Chronic Respiratory Disease: No Hx Diabetes: No Hx Cardiac Disease: No Hx Renal Disease: No Hx Cirrhosis: No Hx Alcoholism: No Hx HIV/AIDS: No Hx Splenectomy or Spleen Trauma: No Other PMH: CVA with right sided and speech deficit, htn, osteoporosis, high cholesterol, chronic pain s/p CVA - Social History Smoking Status: Never smoked Alcohol Use: None Time Seen by Provider: 09/07/17 18:04 HPI/ROS: CHIEF COMPLAINT: Abdominal pain Limitations: Expressive aphasia HISTORY OF PRESENT ILLNESS: 72-year-old female with prior CVA presents with abdominal pain. Onset of left lower quadrant abdominal pain 3 days ago. The pain has been constant and moderate. Associated with nausea. Normal bowel movement today. No fever. No alleviating or aggravating factors. No prior similar symptoms. REVIEW OF SYSTEMS: complete 10 point ROS negative except at noted in the HPI (Roula Sharpe) - Social History Additional Social History: lives at [facility] (Roula Sharpe) - Physical Exam Exam: General Appearance: Alert, difficulty with word-finding Eyes: Pupils equal and round, no conjunctival pallor or injection ENT, Mouth: Mucous membranes moist Neck: Normal inspection Respiratory: Lungs are clear to auscultation Cardiovascular: Regular rate and rhythm Gastrointestinal: Abdomen is soft, left lower quadrant tenderness Neurological: Alert, expressive aphasia, right upper extremity weakness Skin: Warm and dry Extremities: Normal inspection Psychiatric: Mood and affect normal (Roula Sharpe) Constitutional: Initial Vital Signs Temperature (C) 37.2 C 09/07/17 18:48 Heart Rate 75 09/07/17 18:48 Respiratory Rate 16 09/07/17 18:48 Blood Pressure 130/72 H 09/07/17 18:48 O2 Sat (%) 95 09/07/17 18:48 O2 Delivery Mode Room Air Allergies/Adverse Reactions: Penicillins Allergy (Verified 05/27/17 22:38) Home Medications: Medication Instructions Recorded Aspirin EC [Aspirin EC 81 mg (*)] 81 mg PO DAILY 05/27/17 Atorvastatin Calcium 80 mg PO DAILY 05/27/17 Carvedilol [Coreg (*)] 6.25 mg PO BIDMEAL 05/27/17 Duloxetine HCl [Cymbalta] 90 mg PO DAILY 05/27/17 Acetaminophen [Tylenol 325mg (*)] 650 mg PO BID PRN 06/04/17 Alendronate Sodium [Fosamax 70 MG 70 mg PO TU@0700 06/04/17 (*)] Cholecalciferol Vit D3 [Vitamin D3 1,000 units PO DAILY 06/04/17 (*)] Cyanocobalamin [Vitamin B12 (*)] 1,000 mcg PO DAILY 06/04/17 Estradiol [Estrace Vaginal (*)] 1 gm VG MOTH 06/04/17 HYDROcodone/APAP 10325 [[place] 1 tab PO Q4 06/04/17 10/325 (*)] Lisinopril/Hctz 20/12.5MG 2 ea PO DAILY 06/04/17 [Zestoretic/Prinzide 20/12.5MG (*)] Melatonin [Melatonin 3 MG (*)] 3 mg PO HS PRN 06/04/17 Multivitamins [Multivitamin (*)] 1 tab PO DAILY 06/04/17 Polyethylene Glycol 3350 [Miralax 17 gm PO DAILY 06/04/17 17 gm (*)] Polyethylene Glycol 3350 [Miralax 17 gm PO DAILY PRN 06/04/17 17 gm (*)] Rabeprazole Sodium [Aciphex] 20 mg PO DAILY 06/04/17 Sennosides/Docusate Sodium 1 tab PO BID PRN 06/04/17 [SENEXON-S TABLET] Triamcinolone 0.1% [Triamcinolone 1 brett TP BID PRN 06/04/17 0.1% Cream (*)] predniSONE [Prednisone] 10 mg PO DAILY 06/04/17 Medical Decision Making ED Course/Re-evaluation: 2219: Patient's chemistry and CBC just resulted. The CBC was initially very abnormal and thought to be an error. The repeat CBC does not show an acute abnormality mild anemia but otherwise unremarkable. Chemistry reviewed as well. The patient feels well would like to go home. Will set up transfer back to her care facility. Return precautions discussed with her. (Jamey Redman) Initial istat/chem7 labs concerning for technical error; repeat istat reveals K+ 3.4, will repeat Chem7. Repeat Chem 7 is unremarkable. This patient presents with left lower quadrant pain, concerning for acute diverticulitis. Stat CT scan of the abdomen and pelvis ordered. CT scan reveals constipation, otherwise unremarkable. Results discussed with the patient. She declines Fleet's enema. She will take magnesium citrate prior to discharge home. Abdominal exam remains benign on discharge. CBC pending at shift change. Signed over to Dr. Redman only to check CBC. If unremarkable results, plan to d/c pt home. (Roula Sharpe) Differential Diagnosis: Differential diagnosis includes though it is not limited to appendicitis, cholecystitis, diverticulitis, pyelonephritis, bowel perforation, small bowel obstruction. (Roula Sharpe) - Data Points Laboratory Results: Laboratory Results 09/07/17 21:48 09/07/17 20:25 Medications Given: Discontinued Medications Acetaminophen (Tylenol) 650 mg PO EDNOW ONE Stop: 09/07/17 19:19 Last Admin: 09/07/17 19:22 Dose: 650 mg Sodium Chloride (Ns) 1,000 mls @ 0 mls/hr IV EDNOW ONE; Wide Open PRN Reason: Protocol Stop: 09/07/17 18:56 Last Admin: 09/07/17 19:21 Dose: 1,000 mls Magnesium Citrate (Magnesium Citrate) 300 ml PO EDNOW ONE Stop: 09/07/17 21:14 Last Admin: 09/07/17 23:13 Dose: 300 ml Morphine Sulfate (Morphine) 2 mg IVP EDNOW ONE Stop: 09/07/17 20:36 Last Admin: 09/07/17 20:40 Dose: 2 mg Ondansetron HCl (Zofran) 4 mg IVP EDNOW ONE Stop: 09/07/17 18:56 Last Admin: 09/07/17 19:24 Dose: 4 mg Point of Care Test Results: Chemistry 09/07/17 09/07/17 20:34 19:55 POC Sodium 143 mEq/L mEq/L 152 mEq/L H mEq/L (135-145) (135-145) POC Potassium 3.4 mEq/L mEq/L < 2.0 mEq/L L* mEq/L (3.3-5.0) (3.3-5.0) POC Chloride 103 mEq/L mEq/L 119 mEq/L H mEq/L (97-110) (97-110) POC BUN 28 mg/dL H mg/dL 15 mg/dL mg/dL (7-23) (7-23) POC Creatinine 0.7 mg/dL D mg/dL < 0.2 mg/dL L mg/dL (0.6-1.0) (0.6-1.0) POC Glucose 86 mg/dL mg/dL 47 mg/dL L mg/dL (70-100) (70-100) ISTAT H&H 09/07/17 09/07/17 20:34 19:55 POC Hgb 9.2 gm/dL L gm/dL TNP (12.6-16.3) POC Hct 27 % L % < 15 % L* % (38-47) (38-47) Departure - Departure Disposition: Home, Routine, Self-Care Clinical Impression: Constipation, Abdominal pain Condition: Good Instructions: Magnesium Citrate (By mouth), Constipation (ED), High Fiber Diet (ED), Acute Abdominal Pain (ED) Additional Instructions: I suggest that you try a Fleet's enema. This will likely relieve the constipation and decrease the pain. Referrals: Alfreda James MD [[facility] Primary Care Provider] - As per Instructions
[2017-09-07] MEDS ORDERED: ACETAMINOPHEN 325 MG TAB PO ONE (19:18)
[2017-09-07] MEDS ORDERED: IOPAMIDOL (ISOVUE-300) 100 ML BTL ONE (20:03)
--- NOTE | 2017-09-07 20:45 | CPEKG ---
Heart Rate: 73 RR Interval: 822 P-R Interval: 164 QRSD Interval: 86 QT Interval: 384 QTC Interval: 424 P [place]: 53 QRS [place]: 17 T Wave [place]: 81 EKG Severity - BORDERLINE ECG - EKG Impression: SINUS RHYTHM EKG Impression: BORDERLINE T ABNORMALITIES, ANT-LAT LEADS Electronically Signed By: Roula Sharpe 07-Sep-2017 21:31:13
[2017-09-07] MEDS ORDERED: MAGNESIUM CITRATE 300 ML BOTTLE PO ONE (21:13)
[2017-09-07 21:59] LABS: PLATELET COUNT 180 10^3/uL (150-400)
[2017-09-07 22:09] LABS: PLATELET COUNT 95 10^3/uL (150-400)
[2017-09-07 23:12] VITALS: BP 156/68
== END 2017-09-07 23:36 | disposition home or self-care (01) ==
LOC: EDUNIT#
DX: K59.00 Constipation, unspecified (principal); E86.9 Volume depletion, unspecified; I10 Essential (primary) hypertension; Z79.82 Long term (current) use of aspirin; Z86.73 Personal history of transient ischemic attack (TIA), and cerebral infarction without residual deficits
CPT/HCPCS: 74177; 93005; 96361; 96374; 96375; 99285; J2270; J2405; Q9967; 82435-PO; 82565-PO; 82947-PO; 84132-PO; 84295-PO; 84520-PO; 85014-PO